=== PATIENT | female | born 1985 | race Native Hawaiian/Other Pacific Islander ===

== ENCOUNTER → 2020-12-25 | Outpatient (CLI) | payer BC, OTHER | LOC: INF 14:20 | PROVIDERS: ATTEND Internal Medicine | DX: Z23 Encounter for immunization (principal) | CPT/HCPCS: 96372 ==

== ENCOUNTER 2021-01-18 14:21 | Outpatient (CLI) | payer BC, OTHER | END 2021-01-18 23:59 | disposition home or self-care (01) | LOC: INF 14:21 | PROVIDERS: ATTEND Internal Medicine | DX: Z23 Encounter for immunization (principal) | CPT/HCPCS: 96372 ==

== ENCOUNTER 2022-11-20 15:27 | Outpatient (CLI) | payer BC | END 2022-11-20 19:34 | disposition home or self-care (01) | LOC: MAMMO 15:27 | PROVIDERS: ATTEND Family Medicine | DX: Z12.31 Encounter for screening mammogram for malignant neoplasm of breast (principal) ==

== ENCOUNTER 2022-12-23 15:37 | Outpatient (CLI) | payer BC | END 2022-12-23 20:56 | disposition home or self-care (01) | LOC: US 15:37 | PROVIDERS: ATTEND Family Medicine | DX: R92.8 Other abnormal and inconclusive findings on diagnostic imaging of breast (principal) ==

== ENCOUNTER 2023-07-07 09:35 | Outpatient (CLI) | payer BC | END 2023-07-07 21:23 | disposition home or self-care (01) | LOC: MAMMO 09:35 | PROVIDERS: ATTEND Family Medicine | DX: R92.8 Other abnormal and inconclusive findings on diagnostic imaging of breast (principal) ==